=== PATIENT | male | born 1980 | race Caucasian/White ===

== ENCOUNTER 2019-02-26 15:09 | Emergency (ER) | payer OTHER ==
[~2019-02-26] VITALS: Ht 165.1 cm; Wt 90.7 kg
[2019-02-26] MEDS ORDERED: ASPIR 8181 M1 PO (16:06)
[2019-02-26 17:52] LABS: ABSOLUTE NEUTROPHILS 5.9 thou/uL (1.4-8.2); BASOPHILS 0.8 % (0.0-2.0); EOSINOPHILS 1.6 % (0.0-3.0); HEMOGLOBIN 16.2 gm/dL (14.0-18.0); LYMPHOCYTES 32.1 % (24.0-44.0); MCH 31.1 pg (26.0-34.0); MCHC 33.1 g/dL (28.0-37.0); MCV 93.8 fL (80.0-100.0); MONOCYTES 6.5 % (1.0-8.0); PLATELET COUNT 346 thou/uL (150-400); RBC 5.23 mil/uL (4.50-6.00); RDW 13.5 % (10.5-14.5)
[2019-02-26 17:57] LABS: ANION GAP 12 mmol/L (7-16); BUN 12 mg/dL (7-18); CALCIUM 9.6 mg/dL (8.5-10.1); CHLORIDE 101 mmol/L (98-107); CO2 27 mmol/L (21-32); CREATININE 1.1 mg/dL (0.7-1.3); GLUCOSE 122 mg/dL (74-106); POTASSIUM 3.5 mmol/L (3.5-5.1); SODIUM 140 mmol/L (136-145)
[2019-02-26 18:07] LABS: ALBUMIN 4.4 g/dL (3.4-5.0); SGOT 36 U/L (15-37); SGPT 73 U/L (30-65); TOTAL BILIRUBIN 0.4 mg/dL (<0.1-1.0); TOTAL PROTEIN 8.6 g/dL (6.4-8.2); TROPONIN-I <0.06 ng/mL (<0.06)
[2019-02-26 18:32] LABS: URINE BILIRUBIN NEGATIVE (Negative); URINE BLOOD NEGATIVE (Negative); URINE CLARITY CLOUDY; URINE COLOR YELLOW; URINE GLUCOSE-RANDOM* NEGATIVE (Negative); URINE KETONES TRACE (Negative); URINE LEUKOCYTES-REFLEX NEGATIVE (Negative); URINE NITRITE-REFLEX NEGATIVE (Negative); URINE PROTEIN (DIPSTICK) TRACE (Negative); URINE SPECIFIC GRAVITY >= 1.030 (1.005-1.035)
[2019-02-26 19:35] LABS: AMP/METHAMP Negative (Negative); BARBITURATES Negative (Negative); BENZODIAZEPINES Negative (Negative); COCAINE Negative (Negative); METHADONE Negative (Negative); OPIATES Negative (Negative); PCP Negative (Negative)
[2019-02-26 20:07] VITALS: BP 140/88
--- NOTE | 2019-02-27 19:38 | EKG ---
[place] [address] [facility] [employer] [place] [address] ELECTROCARDIOGRAM REPORT Name: MENG PRITCHETTOS Magdaleno Room #: [facility]#: [id number] Admission: 02/26/19 Attend Phys: Discharge: 02/26/19 Date of : 82 Report #: [id number] THIS REPORT FOR: //name// [facility] ED Test Date: 2019-02-26 Test Time: 15:15:14 Pat Name: RADHA PRITCHETT Department: Room: Gender: Hog Man: WALTER : 1980 Requested By: Emani Lacey Order Number: [id number] MD: Kevon Rosario Measurements Intervals [place] Rate: 125 P: 38 MI: 157 QRS: -28 QRSD: 90 T: 63 QT: 280 QTc: 404 Interpretive Statements Sinus tachycardia Inferior infarct, old Compared to ECG 09/05/2007 11:35:36 Myocardial infarct finding now present Electronically Signed On 02-27-2019 19:37:25 [employer] by Kevon Rosario [email or web address] <ELECTRONICALLY SIGNED> By: Kevon Rosario MD, [facility] 02/27/19 1937 1515 1515 Kevon Rosario MD, FACC /EPI
== END 2019-02-26 20:40 | disposition home or self-care (01) ==
LOC: ER 15:09
PROVIDERS: Physician Assistant
DX: R42 Dizziness and giddiness (principal); R00.2 Palpitations; E66.9 Obesity, unspecified